=== PATIENT | female | born 1975 | race Caucasian/White ===

== ENCOUNTER 2017-10-25 14:27 | Emergency (ER) | payer MEDICAID | END 2017-10-25 16:35 | disposition home or self-care (01) | LOC: D.ER 14:27 | DX: I10 Essential (primary) hypertension (principal) ==

== ENCOUNTER 2018-08-28 11:42 | Inpatient (IN) | payer MEDICAID ==
[~2018-08-28] VITALS: Ht 165.1 cm; Wt 63.6 kg
--- NOTE | ~2018-08-28 | MORECARE ---
CASE MANAGEMENT DISCHARGE SUMMARY PATIENT: TONY ZHANG UNIT: [id number] ADM DATE: 08/28/18 AGE: 43 : 71 SEX: F ROOM/BED: D.2212 AUTHOR: CARYN SAENZ PHYSICIAN: REFERRING PHYSICIAN: ANA MASON MD DATE OF SERVICE: 09/06/18 Discharge Plan Patient Name: TONY ZHAGN Facility: [facility]:[place] : 1975 Planned Disposition: Home or Self Care Anticipated Discharge Date: Discharge Date: 09/01/2018 Expected LOS: 0 Initial Reviewer: [email or web address] Initial Review Date: 08/28/2018 Generated: 09/06/18 10:34 am Comments DCP- Discharge Planning Updated by [email or web address]: Valentina Rome on 09/01/18 9:[address] Patient Name: TONY ZHANG Encounter No: [id number] : 1975 Primary Insurance: MEDICAID [place] Anticipated DC Date: Planned Disposition: Home or Self Care External Planned Provider: : DCP follow-up note: Patient and family in agreement with discharge plan. No changes to plan. No other needs at this time. Case management will follow and assist as needed. Valentina Rome DCP- Discharge Planning Updated by [email or web address]: Valentina Rome on 08/30/18 10:[address] Patient Name: TONY ZHANG Admission Status: ER Accout number: [id number] Admission Date: 08-28-2018 : 1975 Admission Diagnosis: Attending: ANA MASON Current LOS: 2 Anticipated DC Date: Planned Disposition: Home or Self Care Primary Insurance: MEDICAID [place] Discharge Planning Comments: CM met with patient and boyfriend (Jw) to assess discharge planning needs. Patient stated that at present time she is homeless. She was at [facility] ([address]) a week ago but left there. She stated that she thinks that she has an apartment set up, but needs utilities turned on. She stated that they should be turned on either today or tomorrow. Her boyfriends parents will be helping them get them turned on and they should be in town today. She has a car. Her mother lives in [place] & has her child, but there is a restraining order against her at this time, so she can not go to her mom's house. Patient's cell phone number is [phone]. CM will continue to follow and assist with dc planning as needed. Forklift Wheel Loader: Valentina Rome DCPIA - Discharge Planning Initial Assessment Updated by [email or web address]: Valentina Rome on 08/30/18 11:46 am * Is the patient Alert and Oriented? Yes * PCP [facility] * Pharmacy [facility] * Preadmission Environment Homeless * ADLs Independent * Equipment None * List name and contact numbers for known caregivers / representatives who currently or will assist patient after discharge: JW (BOYFRIEND) * Verbal permission to speak to the caregivers and representatives has been obtained from the patient. Yes * Community resources currently utilized None * Additional services required to return to the preadmission environment? Yes * Can the patient safely return to the preadmission environment? Yes * Has this patient been hospitalized within the prior 30 days at any hospital? No Last DP export: 09/01/18 9:25 a Patient Name: TONY ZHANG Page 21183 at 0934 All edits/amendments must be made on the electronic document DICTATION DATE: 09/06/18933 INTERNAL CONTROL MANAGER: TONY 09/06/18933 RPT#: [id number] DC DATE:09/01/18 STATUS: DIS IN [facility] [address] [place] [address] END OF REPORT
--- NOTE | ~2018-08-28 | MORECARE ---
CASE MANAGEMENT DISCHARGE SUMMARY PATIENT: TONY ZHANG UNIT: [id number] ADM DATE: 08/28/18 AGE: 43 : 71 SEX: F ROOM/BED: D.2212 AUTHOR: CARYN SAENZ PHYSICIAN: REFERRING PHYSICIAN: ANA MASON MD DATE OF SERVICE: 08/30/18 Discharge Plan Patient Name: TONY ZHANG [facility] [facility] 1975 Planned Disposition: Home or Self Care Anticipated Discharge Date: Discharge Date: Expected LOS: Initial Reviewer: [email or web address] Initial Review Date: 08/28/2018 Generated: 08/30/18 12:50 pm DCPIA - Discharge Planning Initial Assessment Updated by [email or web address]: Valentina Rome on 08/30/18 11:46 am * Is the patient Alert and Oriented? Yes * PCP [facility] * Pharmacy [facility] * Preadmission Environment Homeless * ADLs Independent * Equipment None * List name and contact numbers for known caregivers / representatives who currently or will assist patient after discharge: CHUCKIE (BOYFRIEND) * Verbal permission to speak to the caregivers and representatives has been obtained from the patient. Yes * Community resources currently utilized None * Additional services required to return to the preadmission environment? Yes * Can the patient safely return to the preadmission environment? Yes * Has this patient been hospitalized within the prior 30 days at any hospital? No Patient Name: TONY ZHANG Page 81369 at 1150 All edits/amendments must be made on the electronic document DICTATION DATE: 08/30/18 1150 METAL FITTER: TONY 08/30/18 1150 RPT#: [id number] DC DATE: STATUS: ADM IN [facility] [address] [place] [address] END OF REPORT
--- NOTE | ~2018-08-28 | MORECARE ---
CASE MANAGEMENT DISCHARGE SUMMARY PATIENT: TONY ZHANG UNIT: [id number] ADM DATE: 08/28/18 AGE: 43 : 71 SEX: F ROOM/BED: D.2212 AUTHOR: CARYN SAENZ PHYSICIAN: REFERRING PHYSICIAN: ANA MASON MD DATE OF SERVICE: 09/01/18 Discharge Plan Patient Name: TONY ZHANG Facility: [facility]:[place] : 1975 Planned Disposition: Home or Self Care Anticipated Discharge Date: Discharge Date: Expected LOS: Initial Reviewer: [email or web address] Initial Review Date: 08/28/2018 Generated: 09/01/18 11:25 am Comments DCP- Discharge Planning Updated by [email or web address]: Valentina Rome on 09/01/18 9:[address] Patient Name: TONY ZHANG Encounter No: [id number] : 1975 Primary Insurance: MEDICAID [place] Anticipated DC Date: Planned Disposition: Home or Self Care External Planned Provider: : DCP follow-up note: Patient and family in agreement with discharge plan. No changes to plan. No other needs at this time. Case management will follow and assist as needed. Valentina Rome DCP- Discharge Planning Updated by [email or web address]: Valentina Rome on 08/30/18 10:[address] Patient Name: TONY ZHANG Admission Status: ER Accout number: [id number] Admission Date: 08-28-2018 : 1975 Admission Diagnosis: Attending: ANA MASON Current LOS: 2 Anticipated DC Date: Planned Disposition: Home or Self Care Primary Insurance: MEDICAID [place] Discharge Planning Comments: CM met with patient and boyfriend (Jw) to assess discharge planning needs. Patient stated that at present time she is homeless. She was at [facility] ([address]) a week ago but left there. She stated that she thinks that she has an apartment set up, but needs utilities turned on. She stated that they should be turned on either today or tomorrow. Her boyfriends parents will be helping them get them turned on and they should be in town today. She has a car. Her mother lives in [place] & has her child, but there is a restraining order against her at this time, so she can not go to her mom's house. Patient's cell phone number is [phone]. CM will continue to follow and assist with dc planning as needed. Eight Arm Operator: Valentina Rome DCPIA - Discharge Planning Initial Assessment Updated by [email or web address]: Valentina Rome on 08/30/18 11:46 am * Is the patient Alert and Oriented? Yes * PCP [facility] * Pharmacy [facility] * Preadmission Environment Homeless * ADLs Independent * Equipment None * List name and contact numbers for known caregivers / representatives who currently or will assist patient after discharge: JW (BOYFRIEND) * Verbal permission to speak to the caregivers and representatives has been obtained from the patient. Yes * Community resources currently utilized None * Additional services required to return to the preadmission environment? Yes * Can the patient safely return to the preadmission environment? Yes * Has this patient been hospitalized within the prior 30 days at any hospital? No Last DP export: 08/30/18 11:00 a Patient Name: TONY ZHANG Page 08799 at 1025 All edits/amendments must be made on the electronic document DICTATION DATE: 09/01/18 1024 WAITER/WAITRESS TOURIST CLASS: TONY 09/01/18 1024 RPT#: [id number] DC DATE: STATUS: ADM IN [facility] [address] [place] [address] END OF REPORT
--- NOTE | ~2018-08-28 | MORECARE ---
CASE MANAGEMENT DISCHARGE SUMMARY PATIENT: TONY ZHANG UNIT: [id number] ADM DATE: 08/28/18 AGE: 43 : 71 SEX: F ROOM/BED: D.2212 AUTHOR: CARYN SAENZ PHYSICIAN: REFERRING PHYSICIAN: ANA MASON MD DATE OF SERVICE: 08/30/18 Discharge Plan Patient Name: TONY ZHANG Facility: [facility]:[place] : 1975 Planned Disposition: Home or Self Care Anticipated Discharge Date: Discharge Date: Expected LOS: Initial Reviewer: [email or web address] Initial Review Date: 08/28/2018 Generated: 08/30/18 1:00 pm Comments DCP- Discharge Planning Updated by [email or web address]: Valentina Rome on 08/30/18 10:[address] Patient Name: TONY ZHANG Admission Status: ER Accout number: [id number] Admission Date: 08-28-2018 : 1975 Admission Diagnosis: Attending: ANA MASON Current LOS: 2 Anticipated DC Date: Planned Disposition: Home or Self Care Primary Insurance: MEDICAID [place] Discharge Planning Comments: CM met with patient and boyfriend (Jw) to assess discharge planning needs. Patient stated that at present time she is homeless. She was at [facility] ([address]) a week ago but left there. She stated that she thinks that she has an apartment set up, but needs utilities turned on. She stated that they should be turned on either today or tomorrow. Her boyfriends parents will be helping them get them turned on and they should be in town today. She has a car. Her mother lives in [place] & has her child, but there is a restraining order against her at this time, so she can not go to her mom's house. Patient's cell phone number is [phone]. CM will continue to follow and assist with dc planning as needed. Carton Maker: Valentina Rome DCPIA - Discharge Planning Initial Assessment Updated by [email or web address]: Valentina Rome on 08/30/18 11:46 am * Is the patient Alert and Oriented? Yes * PCP [facility] * Pharmacy [facility] * Preadmission Environment Homeless * ADLs Independent * Equipment None * List name and contact numbers for known caregivers / representatives who currently or will assist patient after discharge: JW (BOYFRIEND) * Verbal permission to speak to the caregivers and representatives has been obtained from the patient. Yes * Community resources currently utilized None * Additional services required to return to the preadmission environment? Yes * Can the patient safely return to the preadmission environment? Yes * Has this patient been hospitalized within the prior 30 days at any hospital? No Last DP export: 08/30/18 10:50 a Patient Name: TONY ZHANG Page 95243 at 1200 All edits/amendments must be made on the electronic document DICTATION DATE: 08/30/181158 STRIPPER OPAQUER: TONY 08/30/181158 RPT#: [id number] DC DATE: STATUS: ADM IN [facility] [address] [place] [address] END OF REPORT
[2018-08-28] MEDS ORDERED: LISINOPRIL10 MG PO (11:47)
[2018-08-28 14:50] LABS: APPEARANCE CLEAR (CLEAR); BILIRUBIN NEGATIVE (NEGATIVE); COLOR DK YELLOW (YELLOW); GLUCOSE NEGATIVE (NEGATIVE); KETONE SMALL mg/dL (NEGATIVE); NITRITE NEGATIVE (NEGATIVE); PROTEIN NEGATIVE (NEGATIVE); UROBILINOGEN NORMAL (NORMAL)
[2018-08-28 18:47] VITALS: BP 144/86
[2018-08-28 18:49] VITALS: BP 144/86
[2018-08-28 23:34] LABS: BASOPHILS 0.1 % (0-2); EOSINOPHILS 0.6 % (0-7); HEMATOCRIT 36.6 % (36.0-48.0); HEMOGLOBIN 12.4 g/dL (12-16); IMMATURE GRANULOCYTES 0.4 % (0-5); LYMPHOCYTES 8.7 % (15-50); MCH 30.4 pg (26.0-34.0); MCHC 33.9 g/dL (31.0-37.0); MCV 89.7 fL (80.0-100.0); MEAN PLATELET VOLUME 12.3 fL (7.4-10.4); MONOCYTES 2.6 % (2-11); NEUTROPHILS 87.6 % (40-80); RBC 4.08 10x6/uL (4.00-5.40); RDW 12.7 % (11.5-14.5); WBC 9.5 10x3/uL (4.8-10.8)
[2018-08-28 23:44] LABS: PLATELET COUNT 102 10x3/uL (130-400)
[2018-08-28 23:48] LABS: CALC OSMOLALITY 278 mosm/kg (275-300); CALCIUM 8.1 mg/dL (8.5-10.1); CARBON DIOXIDE 26.6 mmol/L (21.0-32.0); CHLORIDE - SERUM 103 mmol/L (98-107); CREATININE - SERUM 0.7 mg/dL (0.6-1.3); GLUCOSE 136 mg/dL (74-106); POTASSIUM - SERUM 4.8 mmol/L (3.5-5.1); SODIUM 138 mmol/L (136-145); UREA NITROGEN 16 mg/dL (7-18); eGFR NON AFRICAN AMERICAN > 90 mL/min (90-120)
[2018-08-29] VITALS (7 sets, daily range): BP systolic 95–144; BP diastolic 58–86; Ht 165.1 cm; Wt 63.6 kg
[2018-08-29 10:26] LABS: BASOPHILS 0.2 % (0-2); EOSINOPHILS 0.3 % (0-7); HEMATOCRIT 36.5 % (36.0-48.0); HEMOGLOBIN 12.2 g/dL (12-16); IMMATURE GRANULOCYTES 0.2 % (0-5); LYMPHOCYTES 23.3 % (15-50); MCH 30.4 pg (26.0-34.0); MCHC 33.4 g/dL (31.0-37.0); MEAN PLATELET VOLUME 11.6 fL (7.4-10.4); MONOCYTES 8.7 % (2-11); NEUTROPHILS 67.3 % (40-80); PLATELET COUNT 190 10x3/uL (130-400); RBC 4.01 10x6/uL (4.00-5.40); RDW 12.7 % (11.5-14.5); WBC 12.9 10x3/uL (4.8-10.8)
[2018-08-29 11:28] LABS: ERYTHROCYTE SEDIMENTATION RATE 9 mm/hr (0-20)
[2018-08-30 08:12] VITALS: BP 134/80
[2018-08-30 16:33] VITALS: BP 122/71
[2018-08-30 20:00] VITALS: BP 120/59
[2018-08-31] VITALS: BP 125/68
[2018-08-31 04:00] VITALS: BP 139/81
[2018-08-31 08:30] VITALS: BP 122/69
[2018-08-31 09:54] LABS: BASOPHILS 0.4 % (0-2); EOSINOPHILS 2.2 % (0-7); HEMATOCRIT 38.9 % (36.0-48.0); IMMATURE GRANULOCYTES 0.3 % (0-5); LYMPHOCYTES 30.3 % (15-50); MCH 30.6 pg (26.0-34.0); MCHC 33.4 g/dL (31.0-37.0); MCV 91.5 fL (80.0-100.0); MEAN PLATELET VOLUME 11.9 fL (7.4-10.4); MONOCYTES 6.7 % (2-11); NEUTROPHILS 60.1 % (40-80); PLATELET COUNT 179 10x3/uL (130-400); RBC 4.25 10x6/uL (4.00-5.40); WBC 7.1 10x3/uL (4.8-10.8)
[2018-08-31 10:54] LABS: ERYTHROCYTE SEDIMENTATION RATE 7 mm/hr (0-20)
[2018-08-31 12:45] VITALS: BP 160/92
[2018-08-31 17:15] VITALS: BP 137/62
[2018-08-31 20:41] VITALS: BP 148/73
[2018-09-01 04:52] VITALS: BP 138/68
[2018-09-01] MEDS ORDERED: AUGMENTIN 875-11 TAB PO (07:43)
[2018-09-01] MEDS ORDERED: NORCO-7.5 PO (07:44)
[2018-09-01 09:06] VITALS: BP 167/87
== END 2018-09-01 11:01 | disposition home or self-care (01) | DRG 513 ==
LOC: D.ER 11:42 → D.EDHOLD 14:08 → D.MS 14:08
PROVIDERS: Orthopaedic Surgery
PROC: 0PH Upper Bones, Insertion (ICD-10-PCS; 2018-08-28)
PROC: 0LQ70ZZ Repair Right Hand Tendon, Open Approach (ICD-10-PCS; 2018-08-28)
PROC: 0PST04Z Reposition Right Finger Phalanx with Internal Fixation Device, Open Approach (ICD-10-PCS; principal; 2018-08-28 14:27)
PROC: 0PSP04Z Reposition Right Metacarpal with Internal Fixation Device, Open Approach (ICD-10-PCS; 2018-08-28 14:27)
PROC: 0PH Upper Bones, Insertion (ICD-10-PCS; 2018-08-28 14:27)
PROC: 05HC33Z Insertion of Infusion Device into Left Basilic Vein, Percutaneous Approach (ICD-10-PCS; 2018-08-29)
PROC: B54NZZA Ultrasonography of Left Upper Extremity Veins, Guidance (ICD-10-PCS; 2018-08-29)
DX: S62.614B Displaced fracture of proximal phalanx of right ring finger, initial encounter for open fracture (principal); S62.304B Unspecified fracture of fourth metacarpal bone, right hand, initial encounter for open fracture; W34.09XA Accidental discharge from other specified firearms, initial encounter; I10 Essential (primary) hypertension; F17.210 Nicotine dependence, cigarettes, uncomplicated

== ENCOUNTER 2018-09-18 17:56 | Inpatient (IN) | payer MEDICAID ==
[~2018-09-18] VITALS: Ht 165.1 cm; Wt 67.9 kg
--- NOTE | ~2018-09-18 | MORECARE ---
CASE MANAGEMENT DISCHARGE SUMMARY PATIENT: TONY ZHANG UNIT: [id number] ADM DATE: 09/18/18 AGE: 43 : 71 SEX: F ROOM/BED: D.2130 AUTHOR: CARYN SAENZ PHYSICIAN: REFERRING PHYSICIAN: ANA MASON MD DATE OF SERVICE: 09/27/18 Discharge Plan Patient Name: TONY ZHANG [facility] [facility] 1975 Planned Disposition: Home Anticipated Discharge Date: 09/26/18 Discharge Date: 09/26/2018 Expected LOS: 8 Initial Reviewer: [email or web address] Initial Review Date: 09/27/2018 Generated: 09/27/18 11:04 am Patient Name: TONY ZHANG Page 92095 at 1004 All edits/amendments must be made on the electronic document DICTATION DATE: 09/27/18 1004 CONTINUITY CLERK: TONY 09/27/18 1004 RPT#: [id number] DC DATE:09/26/18 STATUS: DIS IN [facility] [address] [place] [address] END OF REPORT
[~2018-09-18 17:56] MED LIST: AUGMENTIN 875-11 TAB PO; LISINOPRIL10 MG PO; NORCO-7.5 PO
[2018-09-18 21:24] LABS: BASOPHILS 0.2 % (0-2); EOSINOPHILS 0.5 % (0-7); HEMATOCRIT 41.6 % (36.0-48.0); HEMOGLOBIN 14.4 g/dL (12-16); IMMATURE GRANULOCYTES 0.2 % (0-5); LYMPHOCYTES 23.9 % (15-50); MCH 31.1 pg (26.0-34.0); MCHC 34.6 g/dL (31.0-37.0); MCV 89.8 fL (80.0-100.0); MEAN PLATELET VOLUME 12.5 fL (7.4-10.4); MONOCYTES 8.4 % (2-11); NEUTROPHILS 66.8 % (40-80); RBC 4.63 10x6/uL (4.00-5.40); RDW 12.9 % (11.5-14.5); WBC 11.2 10x3/uL (4.8-10.8)
[2018-09-18 21:31] LABS: PLATELET COUNT 236 10x3/uL (130-400)
[2018-09-18 21:45] LABS: ALBUMIN 3.4 g/dL (3.4-5.0); ALKALINE PHOSPHATASE 71 U/L (46-116); ALT (SGPT) 20 U/L (10-68); BILIRUBIN - TOTAL 0.79 mg/dL (0.2-1.3); CALC OSMOLALITY 270 mosm/kg (275-300); CALCIUM 9.3 mg/dL (8.5-10.1); CHLORIDE - SERUM 99 mmol/L (98-107); CREATININE - SERUM 0.7 mg/dL (0.6-1.3); GLUCOSE 103 mg/dL (74-106); POTASSIUM - SERUM 4.1 mmol/L (3.5-5.1); PROTEIN - SERUM 7.9 g/dL (6.4-8.2); SODIUM 136 mmol/L (136-145); UREA NITROGEN 11 mg/dL (7-18); eGFR NON AFRICAN AMERICAN > 90 mL/min (90-120)
[2018-09-18 22:16] VITALS: BP 149/58; BMI 23.3
[2018-09-18 23:50] VITALS: BP 149/88
[2018-09-19 03:45] VITALS: BP 138/82
[2018-09-19 06:24] LABS: BASOPHILS 0.2 % (0-2); EOSINOPHILS 1.7 % (0-7); HEMATOCRIT 43.9 % (36.0-48.0); IMMATURE GRANULOCYTES 0.3 % (0-5); LYMPHOCYTES 28.6 % (15-50); MCH 31.1 pg (26.0-34.0); MCHC 34.2 g/dL (31.0-37.0); MCV 90.9 fL (80.0-100.0); MEAN PLATELET VOLUME 11.3 fL (7.4-10.4); NEUTROPHILS 58.2 % (40-80); PLATELET COUNT 189 10x3/uL (130-400); RBC 4.83 10x6/uL (4.00-5.40); RDW 12.9 % (11.5-14.5); WBC 10.1 10x3/uL (4.8-10.8)
[2018-09-19 06:30] LABS: CALC OSMOLALITY 269 mosm/kg (275-300); CALCIUM 8.4 mg/dL (8.5-10.1); CARBON DIOXIDE 25.3 mmol/L (21.0-32.0); CHLORIDE - SERUM 102 mmol/L (98-107); CREATININE - SERUM 0.7 mg/dL (0.6-1.3); GLUCOSE 112 mg/dL (74-106); POTASSIUM - SERUM 3.9 mmol/L (3.5-5.1); SODIUM 135 mmol/L (136-145); UREA NITROGEN 11 mg/dL (7-18); eGFR NON AFRICAN AMERICAN > 90 mL/min (90-120)
[2018-09-19 08:13] VITALS: BP 113/64
[2018-09-19 11:28] VITALS: BP 126/75
[2018-09-19 15:42] LABS: APPEARANCE CLOUDY (CLEAR); BILIRUBIN NEGATIVE (NEGATIVE); COLOR YELLOW (YELLOW); GLUCOSE NEGATIVE (NEGATIVE); KETONE NEGATIVE (NEGATIVE); NITRITE NEGATIVE (NEGATIVE); PROTEIN NEGATIVE (NEGATIVE); SPECIFIC GRAVITY 1.015 (1.005-1.020); UROBILINOGEN NORMAL (NORMAL)
[2018-09-19 15:48] LABS: BACTERIA MODERATE /hpf (NONE SEEN); EPITHELIAL CELLS 0-5 /hpf (0-5); RED CELLS - URINE 0-5 /hpf (0-5); WHITE CELLS - URINE 0-5 /hpf (0-5)
[2018-09-19 15:49] LABS: AMORPHOUS SEDIMENT <1+ /lpf (NONE SEEN)
[2018-09-19 16:35] VITALS: BP 123/71
[2018-09-19 20:52] VITALS: BP 109/48
[2018-09-20] VITALS: BP 115/64
[2018-09-20 04:00] VITALS: BP 129/78
[2018-09-20 06:50] LABS: BASOPHILS 0.1 % (0-2); EOSINOPHILS 1.7 % (0-7); HEMATOCRIT 39.4 % (36.0-48.0); HEMOGLOBIN 13.2 g/dL (12-16); IMMATURE GRANULOCYTES 0.3 % (0-5); LYMPHOCYTES 36.8 % (15-50); MCH 30.6 pg (26.0-34.0); MCHC 33.5 g/dL (31.0-37.0); MCV 91.4 fL (80.0-100.0); MEAN PLATELET VOLUME 12.3 fL (7.4-10.4); MONOCYTES 8.9 % (2-11); NEUTROPHILS 52.2 % (40-80); PLATELET COUNT 214 10x3/uL (130-400); RBC 4.31 10x6/uL (4.00-5.40); RDW 12.7 % (11.5-14.5); WBC 7.7 10x3/uL (4.8-10.8)
[2018-09-20 07:04] LABS: CALC OSMOLALITY 271 mosm/kg (275-300); CALCIUM 8.4 mg/dL (8.5-10.1); CHLORIDE - SERUM 105 mmol/L (98-107); CREATININE - SERUM 0.7 mg/dL (0.6-1.3); GLUCOSE 103 mg/dL (74-106); SODIUM 137 mmol/L (136-145); eGFR NON AFRICAN AMERICAN > 90 mL/min (90-120)
[2018-09-20 07:06] LABS: UREA NITROGEN 8 mg/dL (7-18)
[2018-09-20 08:06] VITALS: BP 121/69
[2018-09-20 11:40] VITALS: BP 125/62
[2018-09-20 19:00] VITALS: BP 132/74
[2018-09-21 00:45] VITALS: BP 125/70
[2018-09-21 04:57] VITALS: BP 133/78
[2018-09-21 08:40] VITALS: BP 122/62
[2018-09-21 12:22] VITALS: BP 123/54
[2018-09-21 13:07] LABS: CALC OSMOLALITY 281 mosm/kg (275-300); CALCIUM 8.3 mg/dL (8.5-10.1); CHLORIDE - SERUM 106 mmol/L (98-107); CREATININE - SERUM 0.7 mg/dL (0.6-1.3); GLUCOSE 119 mg/dL (74-106); POTASSIUM - SERUM 4.3 mmol/L (3.5-5.1); SODIUM 141 mmol/L (136-145); eGFR NON AFRICAN AMERICAN > 90 mL/min (90-120)
[2018-09-21 13:09] LABS: UREA NITROGEN 12 mg/dL (7-18)
[2018-09-21 14:06] LABS: BASOPHILS 0.3 % (0-2); EOSINOPHILS 2.9 % (0-7); HEMATOCRIT 36.1 % (36.0-48.0); HEMOGLOBIN 12.2 g/dL (12-16); IMMATURE GRANULOCYTES 0.3 % (0-5); LYMPHOCYTES 37.7 % (15-50); MCH 30.3 pg (26.0-34.0); MCHC 33.8 g/dL (31.0-37.0); MCV 89.8 fL (80.0-100.0); MEAN PLATELET VOLUME 11.9 fL (7.4-10.4); MONOCYTES 9.2 % (2-11); NEUTROPHILS 49.6 % (40-80); RBC 4.02 10x6/uL (4.00-5.40); RDW 12.8 % (11.5-14.5); WBC 5.9 10x3/uL (4.8-10.8)
[2018-09-21 14:07] LABS: PLATELET COUNT 159 10x3/uL (130-400)
[2018-09-21 20:42] VITALS: BP 116/72
[2018-09-22 01:09] VITALS: BP 127/73
[2018-09-22 04:48] VITALS: BP 124/58
[2018-09-22 08:09] VITALS: BP 143/91
[2018-09-22 11:25] VITALS: BP 131/77
[2018-09-22 11:57] LABS: BASOPHILS 0.5 % (0-2); HEMATOCRIT 40.8 % (36.0-48.0); HEMOGLOBIN 13.9 g/dL (12-16); IMMATURE GRANULOCYTES 0.2 % (0-5); LYMPHOCYTES 37.8 % (15-50); MCH 30.8 pg (26.0-34.0); MCHC 34.1 g/dL (31.0-37.0); MCV 90.3 fL (80.0-100.0); MEAN PLATELET VOLUME 11.5 fL (7.4-10.4); MONOCYTES 8.4 % (2-11); NEUTROPHILS 50.1 % (40-80); RBC 4.52 10x6/uL (4.00-5.40); RDW 12.6 % (11.5-14.5)
[2018-09-22 12:01] LABS: PLATELET COUNT 214 10x3/uL (130-400)
[2018-09-22 12:10] LABS: ALBUMIN 2.6 g/dL (3.4-5.0); ALKALINE PHOSPHATASE 60 U/L (46-116); ALT (SGPT) 18 U/L (10-68); BILIRUBIN - TOTAL 0.19 mg/dL (0.2-1.3); CALC OSMOLALITY 273 mosm/kg (275-300); CALCIUM 8.7 mg/dL (8.5-10.1); CARBON DIOXIDE 28.1 mmol/L (21.0-32.0); CHLORIDE - SERUM 104 mmol/L (98-107); CREATININE - SERUM 0.6 mg/dL (0.6-1.3); GLUCOSE 104 mg/dL (74-106); MAGNESIUM - SERUM 1.7 mg/dL (1.8-2.4); POTASSIUM - SERUM 4.1 mmol/L (3.5-5.1); PROTEIN - SERUM 6.6 g/dL (6.4-8.2); SODIUM 137 mmol/L (136-145); UREA NITROGEN 12 mg/dL (7-18); eGFR NON AFRICAN AMERICAN > 90 mL/min (90-120)
[2018-09-22 16:00] VITALS: BP 158/98
[2018-09-22 21:30] VITALS: BP 136/76
[2018-09-23 00:57] VITALS: BP 131/72
[2018-09-23 05:32] VITALS: BP 123/59
[2018-09-23 08:01] VITALS: BP 116/61
[2018-09-23 11:52] VITALS: BP 140/86
[2018-09-23 13:30] VITALS: Ht 165.1 cm; Wt 67.9 kg
[2018-09-23 15:20] VITALS: BP 141/84
[2018-09-23 21:34] VITALS: BP 157/87
[2018-09-24 01:20] VITALS: BP 122/58
[2018-09-24 06:38] VITALS: BP 115/59
[2018-09-24 09:41] VITALS: BP 116/50
[2018-09-24 13:11] VITALS: BP 129/75
[2018-09-24 16:47] VITALS: BP 113/58
[2018-09-24 20:00] VITALS: BP 156/80
[2018-09-25] VITALS: BP 145/78
[2018-09-25 04:00] VITALS: BP 119/68
[2018-09-25 16:40] VITALS: BP 141/81
[2018-09-25 19:08] LABS: AEROBE ID Final report (())
[2018-09-25 20:00] VITALS: BP 165/83
[2018-09-26] VITALS: BP 104/60
[2018-09-26 04:00] VITALS: BP 119/60
[2018-09-26 09:00] VITALS: BP 130/64
[2018-09-26] MEDS ORDERED: NORCO-7.5 PO (13:41)
[2018-09-26] MEDS ORDERED: VIBRAMYCIN 100100 MG PO (13:42)
[2018-09-26] MEDS ORDERED: DIFLUCAN150 MG PO (13:42)
== END 2018-09-26 15:16 | disposition home or self-care (01) | DRG 863 ==
LOC: D.ER 17:56 → D.EDHOLD 20:22 → D.M2 20:22
PROVIDERS: Family Medicine; Internal Medicine Nephrology; Orthopaedic Surgery
PROC: 05HC33Z Insertion of Infusion Device into Left Basilic Vein, Percutaneous Approach (ICD-10-PCS; principal; 2018-09-18)
PROC: B54NZZA Ultrasonography of Left Upper Extremity Veins, Guidance (ICD-10-PCS; 2018-09-18)
DX: T81.41XA Infection following a procedure, superficial incisional surgical site, initial encounter (principal); F17.213 Nicotine dependence, cigarettes, with withdrawal; L08.9 Local infection of the skin and subcutaneous tissue, unspecified; I10 Essential (primary) hypertension; Z86.711 Personal history of pulmonary embolism; S62.304D Unspecified fracture of fourth metacarpal bone, right hand, subsequent encounter for fracture with routine healing; S62.604D Fracture of unspecified phalanx of right ring finger, subsequent encounter for fracture with routine healing; W34.09XD Accidental discharge from other specified firearms, subsequent encounter